=== PATIENT | female | born 1950 | race Caucasian/White ===

== ENCOUNTER 2016-10-21 11:05 | Outpatient (CLI) | payer MEDICAID ==
[~2016-10-21 11:05] MED LIST: AMOXICILLIN500 M2 PO; BENTYL20 MG PO; ENALAPRIL/HCTZ1 TA1 PO; FOSAMAX70 M1 PO; LISINOPRIL HCTZ1 TAB PO; LOVASTATIN20 MG PO; MEVACOR20 MG PO; MOBIC15 MG PO; NAPROSYN 500MG500 MG PO; SYMBICORT1 AE1 IH; SYNTHROID 0.0.125 MG PO; SYNTHROID 0.00.05 MG PO; VENTOLIN H0.09 MG/AC IH; ZOFRAN ODT4 MG PO; [UNRECOGNIZED DRUG - REMARK]; [UNRECOGNIZED DRUG - REMARK]
[2016-10-21] MEDS ORDERED: NATURAL POTASS595 MG PO (11:16)
[2016-10-21 11:22] VITALS: BP 139/72
== END 2016-10-21 11:44 | disposition home or self-care (01) ==
LOC: COP 11:05
DX: M81.0 Age-related osteoporosis without current pathological fracture (principal)
CPT/HCPCS: J0897

== ENCOUNTER → 2017-02-02 | Outpatient (CLI) | payer MEDICAID ==
[~2017-02-02] MED LIST changes: +NATURAL POTASS595 MG PO
--- NOTE | 2017-02-02 12:22 | CARDIOVASCULAR REPORT ---
"Cerebrovascular Exam IMPRESSIONS 1. The bilateral vertebral arteries are patent with normal antegrade flow. 2. Study suggests less than 20% stenosis involving the right internal carotid artery and the left internal carotid artery. Carotid duplex study. Complete study and Doppler flow study including spectral analysis, color and molina scale imaging. Height: Height: 165.1cm. Height: 65in. Weight: Weight: 74.8kg. Weight: 164.7lb. Body mass index: BMI: 27.5kg/m^2. Body surface area: BSA: 1.87m^2. Location: Vascular laboratory. Patient status: Outpatient. Tables: Arterial flow: + +--------+--------+ |Location |V sys |V ed | + +--------+--------+ |Right CCA - proximal|69.9cm/s|17.3cm/s| + +--------+--------+ |Right CCA - distal |59.4cm/s|19.6cm/s| + +--------+--------+ |Right ECA |56.9cm/s|--------| + +--------+--------+ |Right ICA - proximal|78.2cm/s|29.9cm/s| + +--------+--------+ |Right ICA - mid |61.3cm/s|25.9cm/s| + +--------+--------+ |Right ICA - distal |64.4cm/s|24.8cm/s| + +--------+--------+ |Right vertebral |34.2cm/s|--------| + +--------+--------+ |Left CCA - proximal |73.5cm/s|24.8cm/s| + +--------+--------+ |Left CCA - distal |62.9cm/s|22cm/s | + +--------+--------+ |Left ECA |80.5cm/s|--------| + +--------+--------+ |Left ICA - proximal |49.5cm/s|19.3cm/s| + +--------+--------+ |Left ICA - mid |74.6cm/s|29.1cm/s| + +--------+--------+ |Left ICA - distal |75cm/s |30.3cm/s| + +--------+--------+ |Left vertebral |38.9cm/s|--------| + +--------+--------+ Velocity ratios: + + + + + + | |Right, V sys|Right, V ed|Left, V sys|Left, V ed| + + + + + + |Max ICA/dist CCA|1.32 |1.53 |1.19 |1.38 | + + + + + + (Report amended ) Electronically signed by: Blu Ritchie [id number]"
== END ==
LOC: RT 10:47
DX: R09.89 Other specified symptoms and signs involving the circulatory and respiratory systems (principal)

== ENCOUNTER → 2017-04-09 | Outpatient (CLI) | payer MEDICAID ==
[2017-04-09 14:14] LABS: LYMPH # 2.4 K/mm3 (0.7-4.5); LYMPH % 29.5 % (10-50.0)
[2017-04-09 14:20] LABS: HEMOGLOBIN 14.1 g/dL (12.2-16.2)
[2017-04-09 14:49] LABS: BUN 20 mg/dL (7-18)
[2017-04-09 14:50] LABS: GFR (ESTIMATED) 50 ML/MIN (59-)
== END ==
LOC: LAB 13:45
PROVIDERS: Nurse Practitioner Family
DX: E03.8 Other specified hypothyroidism (principal)

== ENCOUNTER → 2017-07-14 | Outpatient (CLI) | payer MEDICAID ==
[2017-07-14 13:39] LABS: URINE BILIRUBIN - DIPSTICK NEGATIVE (NEG); URINE BLOOD NEGATIVE (NEG)
== END ==
LOC: LAB 12:36
PROVIDERS: Internal Medicine Nephrology
DX: R79.89 Other specified abnormal findings of blood chemistry (principal)